=== PATIENT | male | born 1940 | race Caucasian/White ===

== ENCOUNTER 2021-10-08 09:57 | Emergency (ER) | payer OTHER, MEDICARE ==
[2021-10-08 11:31] LABS: CORONAVIRUS COVID-19 NAA POSITIVE (NEGATIVE)
--- NOTE | 2021-10-08 12:15 | EDM.PDOC ---
ED HPI GENERAL MEDICAL PROBLEM - General Chief Complaint: General Stated Complaint: POSSIBLE COVID Time Seen by Provider: 10/08/21 11:56 Source of Information: Reports: Patient, RN Notes Reviewed History Limitations: Reports: No Limitations - History of Present Illness INITIAL COMMENTS - FREE TEXT/NARRATIVE: 80-year-old gentleman presents emergency department today with complaint of fatigue body aches diarrhea he has not had any fevers was exposed to Covid about 2 weeks ago he has had symptoms for about a week and a half. - Related Data Allergies Allergy/AdvReac Type Severity Reaction Status Date / Time No Known Allergies Allergy Verified 10/08/21 10:36 Home Meds: Home Meds NK [No Known Home Meds] 10/08/21 [History] Past Medical History HEENT History: Reports: Cataract Musculoskeletal History: Reports: Fracture - Past Surgical History HEENT Surgical History: Reports: Cataract Surgery GI Surgical History: Reports: Appendectomy, Colonoscopy, Hernia, Inguinal Musculoskeletal Surgical History: Reports: Other (See Below) Other Musculoskeletal Surgeries/Procedures:: left wrist fx repair Social & Family History - Tobacco Use Tobacco Use Status *Q: Former Tobacco User Used Tobacco, but Quit: Yes Month/Year Tobacco Last Used: 0 - Caffeine Use Caffeine Use: Reports: Coffee - Recreational Drug Use Recreational Drug Use: No ED ROS GENERAL - Review of Systems Review Of Systems: See Below Constitutional: Reports: Weakness, Fatigue. Denies: Fever HEENT: Reports: No Symptoms Respiratory: Reports: Shortness of Breath Cardiovascular: Reports: Dyspnea on Exertion GI/Abdominal: Reports: Diarrhea ED EXAM, GENERAL - Physical Exam Exam: See Below Exam Limited By: No Limitations General Appearance: Alert, WD/WN, No Apparent Distress Respiratory/Chest: No Respiratory Distress, Lungs Clear, Normal Breath Sounds, No Accessory Muscle Use, Chest Non-Tender Cardiovascular: Regular Rate, Rhythm, No Murmur GI/Abdominal: Soft, Non-Tender Course - Vital Signs Last Recorded V/S: Last Vital Signs Temp 98 F 10/08/21 10:34 Pulse 95 10/08/21 10:34 Resp 18 10/08/21 10:34 BP 161/92 H 10/08/21 10:34 Pulse Ox 95 10/08/21 10:34 - Orders/Labs/Meds Orders: Active Orders 24 hr Category Date Time Status Isolation [COMM] Stat Oth 10/08/21 10:16 Ordered Labs: Laboratory Tests 10/08/21 Range/Units 10:40 Influenza Type A RNA Negative (NEGATIVE) RSV RNA (INAAT) Negative (NEGATIVE) Influenza Type B RNA Negative (NEGATIVE) SARS-CoV-2 RNA (AVEL) Positive H (NEGATIVE) Departure - Departure Time of Disposition: 12:14 Disposition: Home, Self-Care 01 Condition: Fair Clinical Impression: COVID-19 - Discharge Information Instructions: 10 Things You Can Do to Manage Your COVID-19 Symptoms at Home - [facility] (06/13/2021) Referrals: PCP,None [Primary Care Provider] - Additional Instructions: Use Tylenol Motrin as needed for pain control and symptomatic relief, please followup with your primary care provider in 7-10 days if not better, please call return to the emergency department with worsening of symptoms. Sepsis Event Note (ED) - Evaluation Sepsis Screening Result: No Definite Risk - Focused Exam Vital Signs: Vital Signs Temp Pulse Resp BP Pulse Ox 10/08/21 10:34 98 F 95 18 161/92 H 95 - My Orders Last 24 Hours: My Active Orders 10/08/21 10:16 Isolation [COMM] Stat - Assessment/Plan Last 24 Hours: My Active Orders 10/08/21 10:16 Isolation [COMM] Stat Plan: Assessment Acuity = acute Site and laterality = viral syndrome Etiology = COVID-19 Manifestations = dyspnea Location of injury = Home Lab values = COVID-19 positive, influenza A and B-, RSV negative Plan Because this gentleman is greater than 10 days out I do not think he is a candidate for the monoclonal antibody therapy continue with symptomatic care he is not hypoxic at this time follow-up primary care 7 to 10 days if not better return to the emergency department worsening of symptoms
== END 2021-10-08 12:33 | disposition home or self-care (01) ==
LOC: JP.ED 09:57
DX: U07.1 COVID-19 (principal); Z87.891 Personal history of nicotine dependence
CPT/HCPCS: 0241U; 99284

== ENCOUNTER 2021-10-12 11:28 | Emergency (ER) | payer OTHER, MEDICARE ==
--- NOTE | 2021-10-12 14:05 | EDM.PDOC ---
ED HPI GENERAL MEDICAL PROBLEM - General Chief Complaint: Respiratory Problem Stated Complaint: COVID POS. WEAKNESS, FEVER Time Seen by Provider: 10/12/21 13:50 Source of Information: Reports: Patient, Old Records History Limitations: Reports: No Limitations - History of Present Illness INITIAL COMMENTS - FREE TEXT/NARRATIVE: 80 [facility] [place] [facility]/08 and dx'd with Covid. At that time he was already over 10 d out from the onset of his sx's. [facility]. He is now weak as his main complaint. Onset: Gradual Duration: Week(s): (almost 2 weeks), Constant Location: Reports: Generalized Quality: Reports: Other (no pain) Severity: Moderate Improves with: Reports: Rest Worsens with: Reports: Movement (exertion) Context: Reports: Other (see HPI) Associated Symptoms: Reports: Weakness (generalized). 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) - Related Data Allergies Allergy/AdvReac Type Severity Reaction Status Date / Time No Known Allergies Allergy Verified 10/12/21 13:50 Home Meds: Home Meds NK [No Known Home Meds] 10/08/21 [History] Past Medical History HEENT History: Reports: Cataract Musculoskeletal History: Reports: Fracture - Infectious Disease History Infectious Disease History: Reports: Chicken Pox, Measles, Mumps, Shingles - Past Surgical History HEENT Surgical History: Reports: Cataract Surgery GI Surgical History: Reports: Appendectomy, Colonoscopy, Hernia, Inguinal Musculoskeletal Surgical History: Reports: Other (See Below) Other Musculoskeletal Surgeries/Procedures:: left wrist fx repair Social & Family History - Tobacco Use Tobacco Use Status *Q: Former Tobacco User Years of Tobacco use: 50 Packs/Tins Daily: 1 Used Tobacco, but Quit: Yes Month/Year Tobacco Last Used: 14 years ago - Caffeine Use Caffeine Use: Reports: Coffee ED ROS GENERAL - Review of Systems Review Of Systems: See Below Constitutional: Reports: Malaise, Weakness. Denies: Fever HEENT: Reports: No Symptoms Respiratory: Reports: No Symptoms Cardiovascular: Reports: No Symptoms GI/Abdominal: Reports: No Symptoms : Reports: No Symptoms Musculoskeletal: Reports: No Symptoms Skin: Reports: No Symptoms Neurological: Reports: No Symptoms Psychiatric: Reports: No Symptoms ED EXAM, GENERAL - Physical Exam Exam: See Below Exam Limited By: No Limitations General Appearance: Alert, WD/WN, No Apparent Distress Eye Exam: Bilateral Eye: Normal Inspection Ears: Normal External Exam, Normal Canal, Hearing Grossly Normal Ear Exam: Bilateral Ear: Auricle Normal, Canal Normal Nose: Normal Inspection, No Blood Throat/Mouth: Normal Inspection, Normal Lips, Normal Oropharynx, Normal Voice, No Airway Compromise Head: Atraumatic, Normocephalic Neck: Normal Inspection Respiratory/Chest: No Respiratory Distress, No Accessory Muscle Use, Crackles. No: Respiratory Distress, Accessory Muscle Use Cardiovascular: Regular Rate, Rhythm, No Edema GI/Abdominal: Soft, Non-Tender Extremities: Normal Inspection Neurological: Alert, Oriented, CN II-XII Intact, Normal Cognition, No Motor/Sensory Deficits Psychiatric: Normal Affect, Normal Mood Skin Exam: Warm, Dry, Intact, Normal Color, No Rash Course - Vital Signs Last Recorded V/S: Last Vital Signs Temp 37.7 C 10/12/21 13:59 Pulse 93 10/12/21 13:59 Resp 16 10/12/21 13:59 BP 149/99 H 10/12/21 13:59 Pulse Ox 92 L 10/12/21 13:59 - Orders/Labs/Meds Orders: Active Orders 24 hr Category Date Time Status UA W/MICROSCOPIC [URIN] Stat Lab 10/12/21 14:00 Ordered Labs: Laboratory Tests 10/12/21 10/12/21 Range/Units 14:10 14:10 WBC 8.0 (4.5-11.0) K/uL RBC 5.78 (4.30-5.90) M/uL Hgb 16.0 H (12.0-15.0) g/dL Hct 47.8 (40.0-54.0) % MCV 83 (80-98) fL MCH 28 (27-31) pg MCHC 34 (32-36) % Plt Count 101 L (150-400) K/uL Sodium 136 L (140-148) mmol/L Potassium 4.1 (3.6-5.2) mmol/L Chloride 102 (100-108) mmol/L Carbon Dioxide 21 (21-32) mmol/L Anion Gap 17.1 H (5.0-14.0) mmol/L BUN 15 (7-18) mg/dL Creatinine 1.0 (0.8-1.3) mg/dL Est Cr Clr Drug Dosing 54.17 mL/min Estimated GFR (MDRD) > 60 (>60) Glucose 99 (74-106) mg/dL Calcium 8.1 L (8.5-10.1) mg/dL Departure - Departure Time of Disposition: 15:18 Disposition: Home, Self-Care 01 Condition: Fair Clinical Impression: Weakness, COVID-19 - Discharge Information *PRESCRIPTION DRUG MONITORING PROGRAM REVIEWED*: No *COPY OF PRESCRIPTION DRUG MONITORING REPORT IN PATIENT CARMITA: No Instructions: Symptoms of COVID-19 - [facility] (01/20/2021) Referrals: PCP,None [Primary Care Provider] - Forms: ED Department Discharge Additional Instructions: Take acetaminophen as needed for pain or fever control. Drink enough fluids so that your urine is light yellow in color. Make sure you are up to date on your influenza and Covid vaccines. Recheck if worse. Sepsis Event Note (ED) - Evaluation Sepsis Screening Result: No Definite Risk - Focused Exam Vital Signs: Vital Signs Temp Pulse Resp BP Pulse Ox 10/12/21 13:59 37.7 C 93 16 149/99 H 92 L 10/12/21 13:43 37.7 C 93 16 149/99 H 92 L - My Orders Last 24 Hours: My Active Orders 10/12/21 14:00 UA W/MICROSCOPIC [URIN] Stat - Assessment/Plan Last 24 Hours: My Active Orders 10/12/21 14:00 UA W/MICROSCOPIC [URIN] Stat
== END 2021-10-12 15:33 | disposition home or self-care (01) ==
LOC: JP.ED 11:28
DX: U07.1 COVID-19 (principal); Z87.891 Personal history of nicotine dependence
CPT/HCPCS: 36415; 80048; 85027; 99284

== ENCOUNTER 2021-10-14 15:47 | Emergency (ER) | payer OTHER, MEDICARE ==
--- NOTE | 2021-10-14 16:35 | EDM.PDOC ---
ED HPI GENERAL MEDICAL PROBLEM - General Chief Complaint: Respiratory Problem Stated Complaint: COVID POS.-TROUBLE KEEPING OXYGEN LEVELS UP Time Seen by Provider: 10/14/21 16:20 Source of Information: Reports: Patient, Old Records History Limitations: Reports: No Limitations - History of Present Illness INITIAL COMMENTS - FREE TEXT/NARRATIVE: 80 yo male [place] patient presents for f/u on his Covid. Has PAGAN, mild diarrhea as his sx's. Was not vaccinated for Covid. He called the [place] and was told to go to the ER. No recent fever. Some fatigue. Sx onset about 14 d ago. Was seen here 2 d ago with oxygen sats of 92% at rest on RA. Onset: Gradual Onset Date: 09/30/21 Duration: Week(s): (2), Constant Location: Reports: Generalized Quality: Reports: Other (no pain) Severity: Mild Improves with: Reports: Rest Worsens with: Denies: Movement (exertion) Context: Reports: Other (See HPI) Associated Symptoms: Reports: Cough, Malaise, Other (diarrhea). 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) - Related Data Allergies Allergy/AdvReac Type Severity Reaction Status Date / Time No Known Allergies Allergy Verified 10/14/21 16:20 Home Meds: Home Meds Ibuprofen 400 mg PO ASDIRECTED 10/14/21 [History] Past Medical History HEENT History: Reports: Cataract Musculoskeletal History: Reports: Fracture - Infectious Disease History Infectious Disease History: Reports: Chicken Pox, Measles, Mumps, Novel Coronavirus, Shingles - Past Surgical History HEENT Surgical History: Reports: Cataract Surgery GI Surgical History: Reports: Appendectomy, Colonoscopy, Hernia, Inguinal Musculoskeletal Surgical History: Reports: Other (See Below) Other Musculoskeletal Surgeries/Procedures:: left wrist fx repair Social & Family History - Tobacco Use Tobacco Use Status *Q: Former Tobacco User Used Tobacco, but Quit: Yes Month/Year Tobacco Last Used: 2006 - Caffeine Use Caffeine Use: Reports: Coffee ED ROS GENERAL - Review of Systems Review Of Systems: See Below Constitutional: Reports: Malaise, Fatigue. Denies: Fever HEENT: Reports: No Symptoms Respiratory: Reports: Shortness of Breath, Cough. Denies: Wheezing, Pleuritic Chest Pain, Sputum, Hemoptysis Cardiovascular: Reports: Dyspnea on Exertion GI/Abdominal: Reports: Diarrhea (mild). Denies: Nausea : Reports: No Symptoms Musculoskeletal: Reports: No Symptoms Skin: Reports: No Symptoms Neurological: Reports: No Symptoms ED EXAM, GENERAL - Physical Exam Exam: See Below Exam Limited By: No Limitations General Appearance: Alert, WD/WN, No Apparent Distress Eye Exam: Bilateral Eye: Normal Inspection Ears: Normal External Exam, Normal Canal, Hearing Grossly Normal Ear Exam: Bilateral Ear: Auricle Normal, Canal Normal, TM normal Nose: Normal Inspection, No Blood Throat/Mouth: Normal Inspection, Normal Lips, Normal Oropharynx, Normal Voice, No Airway Compromise Head: Atraumatic, Normocephalic Neck: Normal Inspection Respiratory/Chest: No Respiratory Distress, No Accessory Muscle Use, Crackles Cardiovascular: Regular Rate, Rhythm, No Edema GI/Abdominal: Soft, Non-Tender Extremities: Normal Inspection Neurological: Alert, Oriented, CN II-XII Intact, Normal Cognition, No Motor/Sensory Deficits Psychiatric: Normal Affect, Normal Mood Skin Exam: Warm, Dry, Intact, Normal Color, No Rash Course - Vital Signs Last Recorded V/S: Last Vital Signs Temp 36.8 C 10/14/21 16:26 Pulse 86 10/14/21 17:36 Resp 16 10/14/21 16:26 BP 125/83 10/14/21 17:36 Pulse Ox 89 L 10/14/21 17:36 - Orders/Labs/Meds Orders: Active Orders 24 hr Category Date Time Status BASIC METABOLIC PANEL,BMP [CHEM] Stat Lab 10/14/21 18:03 Received Labs: Laboratory Tests 10/14/21 Range/Units 18:03 WBC 8.3 (4.5-11.0) K/uL RBC 5.94 H (4.30-5.90) M/uL Hgb 16.4 H (12.0-15.0) g/dL Hct 48.8 (40.0-54.0) % MCV 82 (80-98) fL MCH 28 (27-31) pg MCHC 34 (32-36) % Plt Count 144 L (150-400) K/uL Departure - Departure Time of Disposition: 18:16 Disposition: Home, Self-Care 01 Condition: Fair Clinical Impression: COVID-19 - Discharge Information *PRESCRIPTION DRUG MONITORING PROGRAM REVIEWED*: Not Applicable *COPY OF PRESCRIPTION DRUG MONITORING REPORT IN PATIENT CARMITA: Not Applicable Referrals: PCP,None [Primary Care Provider] - Forms: ED Department Discharge Additional Instructions: Acetaminophen for pain or fever. Drink ample fluids. Return for fever. Sepsis Event Note (ED) - Evaluation Sepsis Screening Result: No Definite Risk - Focused Exam Vital Signs: Vital Signs Temp Pulse Resp BP Pulse Ox 10/14/21 17:36 86 125/83 89 L 10/14/21 16:26 36.8 C 97 16 147/89 H 91 L 10/14/21 16:11 36.8 C 97 16 147/89 H 90 L - My Orders Last 24 Hours: My Active Orders 10/14/21 18:03 BASIC METABOLIC PANEL,BMP [CHEM] Stat - Assessment/Plan Last 24 Hours: My Active Orders 10/14/21 18:03 BASIC METABOLIC PANEL,BMP [CHEM] Stat
== END 2021-10-14 18:36 | disposition home or self-care (01) ==
LOC: JP.ED 15:47
DX: U07.1 COVID-19 (principal); Z87.891 Personal history of nicotine dependence
CPT/HCPCS: 36415; 80048; 85027; 99284

== ENCOUNTER 2021-10-31 11:10 | Emergency (ER) | payer OTHER, MEDICARE ==
--- NOTE | 2021-10-31 13:07 | CR ---
CHEST: Portable 10/31/2021 at 12:00 PM CLINICAL HISTORY:Dyspnea COMPARISON:None FINDINGS: Patient has diffuse bilateral pneumonic infiltrates and groundglass opacities. Heart and pulmonary vascularity are normal. There are no effusions. Impression: Diffuse bilateral infiltrates consistent with pneumonitis
--- NOTE | 2021-10-31 13:43 | EDM.PDOC ---
ED HPI GENERAL MEDICAL PROBLEM - General Chief Complaint: Respiratory Problem Stated Complaint: MED[facility] Time Seen by Provider: 10/31/21 11:39 Source of Information: Reports: Patient, EMS History Limitations: Reports: No Limitations - History of Present Illness INITIAL COMMENTS - FREE TEXT/NARRATIVE: Frantz is an 80-year-old male presenting to the ED via [facility] for evaluation of increasing shortness of breath and hypoxia. The patient was diagnosed a month ago with COVID-19 and normally doctors with the [facility] in [place]. He was discharged home with an oxygen concentrator after being diagnosed with COVID-19 and had been doing well until several days ago. He started to feel more short of breath and started checking his oximetry and found that his SPO2 was dropping below 88% with activity. Today he became more startled because his oxygen levels was actually dropping below 80% and he was not able to get his O2 levels above 85% prompting him to call the [facility] which recommended that he come to the closest ER for evaluation. It appears that his oxygen concentrator may be broken. Upon arrival to the ED, the patient was placed on 4 L of oxygen satting 90% and feeling much better. He denies any new symptoms other than the increasing shortness of breath and hypoxia. Again he is more than a month out from having COVID-19. With appropriate oxygenation, the patient feels well. - Related Data Allergies Allergy/AdvReac Type Severity Reaction Status Date / Time No Known Allergies Allergy Verified 10/31/21 11:19 Home Meds: Home Meds Ibuprofen 400 mg PO ASDIRECTED 10/14/21 [History] Past Medical History HEENT History: Reports: Cataract Respiratory History: Reports: Other (See Below) Other Respiratory History: covid 10/01/2021 Musculoskeletal History: Reports: Fracture - Infectious Disease History Infectious Disease History: Reports: Chicken Pox, Measles, Mumps, Novel Coronavirus, Shingles - Past Surgical History HEENT Surgical History: Reports: Cataract Surgery GI Surgical History: Reports: Appendectomy, Colonoscopy, Hernia, Inguinal Musculoskeletal Surgical History: Reports: Other (See Below) Other Musculoskeletal Surgeries/Procedures:: left wrist fx repair Social & Family History - Tobacco Use Tobacco Use Status *Q: Former Tobacco User Used Tobacco, but Quit: Yes Month/Year Tobacco Last Used: 14 years ago Second Hand Smoke Exposure: No - Caffeine Use Caffeine Use: Reports: None - Recreational Drug Use Recreational Drug Use: No ED ROS GENERAL - Review of Systems Review Of Systems: See Below Constitutional: Reports: No Symptoms HEENT: Reports: No Symptoms Respiratory: Reports: Shortness of Breath, Cough. Denies: Sputum Cardiovascular: Reports: No Symptoms Endocrine: Reports: Fatigue GI/Abdominal: Reports: No Symptoms : Reports: No Symptoms Musculoskeletal: Reports: No Symptoms Skin: Reports: No Symptoms Neurological: Reports: No Symptoms Psychiatric: Reports: No Symptoms Hematologic/Lymphatic: Reports: No Symptoms Immunologic: Reports: No Symptoms ED EXAM, GENERAL - Physical Exam Exam: See Below Exam Limited By: No Limitations General Appearance: Alert, No Apparent Distress Eye Exam: Bilateral Eye: EOMI, PERRL Throat/Mouth: Normal Inspection, Normal Oropharynx, Normal Voice, No Airway Compromise Head: Atraumatic, Normocephalic Neck: Normal Inspection, Supple. No: Carotid Bruit Respiratory/Chest: No Respiratory Distress, No Accessory Muscle Use, Crackles (Bibasilar) Cardiovascular: Normal Peripheral Pulses, Regular Rate, Rhythm, No Murmur Peripheral Pulses: 2+: Radial (L), Radial (R) GI/Abdominal: Normal Bowel Sounds, Soft, Non-Tender Extremities: Normal Inspection Neurological: Alert, Oriented, Normal Cognition, No Motor/Sensory Deficits Psychiatric: Normal Affect, Normal Mood Skin Exam: Warm, Dry. No: Cyanosis Course - Vital Signs Last Recorded V/S: Last Vital Signs Temp 35.9 C L 10/31/21 11:11 Pulse 102 H 10/31/21 14:01 Resp 16 10/31/21 13:09 BP 127/82 10/31/21 14:01 Pulse Ox 93 L 10/31/21 13:09 - Orders/Labs/Meds Orders: Active Orders 24 hr Category Date Time Status Iopamidol [Isovue-370 (76%)] Med 10/31/21 14:00 Active 75 ml IV . DIRECTED Sodium Chloride 0.9% [Saline Flush] Med 10/31/21 13:52 Active 10 ml FLUSH ONETIME PRN Medication Orders Iopamidol (Iopamidol 755 Mg/Ml 100 Ml Bottle) 75 ml IV . DIRECTED [facility] Last Admin: 10/31/21 14:18 Dose: 75 ml Documented by: JARON Sodium Chloride (Sodium Chloride 0.9% 10 Ml Syringe) 10 ml FLUSH ONETIME PRN PRN Reason: PER RADIOLOGY PROTOCOL Last Admin: 10/31/21 14:18 Dose: 10 ml Documented by: JARON Labs: Laboratory Tests 10/31/21 10/31/21 10/31/21 Range/Units 11:55 11:55 11:55 WBC 12.2 H (4.5-11.0) K/uL RBC 5.32 (4.30-5.90) M/uL Hgb 14.9 (12.0-15.0) g/dL Hct 43.9 (40.0-54.0) % MCV 83 (80-98) fL MCH 28 (27-31) pg MCHC 34 (32-36) % Plt Count 482 H (150-400) K/uL Neut % (Auto) 61.5 (36-66) % Lymph % (Auto) 23.3 L (24-44) % York % (Auto) 12.4 H (2-6) % Eos % (Auto) 1.8 L (2-4) % Baso % (Auto) 1.0 (0-1) % D-Dimer, Quantitative 6439.93 H (0.0-500.0) ng/mL Sodium 133 L (140-148) mmol/L Potassium 4.5 (3.6-5.2) mmol/L Chloride 100 (100-108) mmol/L Carbon Dioxide 27 (21-32) mmol/L Anion Gap 10.5 (5.0-14.0) mmol/L BUN 11 (7-18) mg/dL Creatinine 0.9 (0.8-1.3) mg/dL Est Cr Clr Drug Dosing 59.16 mL/min Estimated GFR (MDRD) > 60 (>60) Glucose 99 (74-106) mg/dL Lactic Acid (0.4-2.0) mmol/L Calcium 8.5 (8.5-10.1) mg/dL Total Bilirubin 0.6 (0.2-1.0) mg/dL AST 25 (15-37) U/L ALT 42 (12-78) U/L Alkaline Phosphatase 99 (46-116) U/L Lactate Dehydrogenase 289 H (85-227) U/L C-Reactive Protein 1.69 H (0.0-0.3) mg/dL Total Protein 6.7 (6.4-8.2) g/dL Albumin 2.8 L (3.4-5.0) g/dL Globulin 3.9 H (2.3-3.5) g/dL Albumin/Globulin Ratio 0.7 L (1.2-2.2) 10/31/21 Range/Units 11:55 WBC (4.5-11.0) K/uL RBC (4.30-5.90) M/uL Hgb (12.0-15.0) g/dL Hct (40.0-54.0) % MCV (80-98) fL MCH (27-31) pg MCHC (32-36) % Plt Count (150-400) K/uL Neut % (Auto) (36-66) % Lymph % (Auto) (24-44) % York % (Auto) (2-6) % Eos % (Auto) (2-4) % Baso % (Auto) (0-1) % D-Dimer, Quantitative (0.0-500.0) ng/mL Sodium (140-148) mmol/L Potassium (3.6-5.2) mmol/L Chloride (100-108) mmol/L Carbon Dioxide (21-32) mmol/L Anion Gap (5.0-14.0) mmol/L BUN (7-18) mg/dL Creatinine (0.8-1.3) mg/dL Est Cr Clr Drug Dosing mL/min Estimated GFR (MDRD) (>60) Glucose (74-106) mg/dL Lactic Acid 1.4 (0.4-2.0) mmol/L Calcium (8.5-10.1) mg/dL Total Bilirubin (0.2-1.0) mg/dL AST (15-37) U/L ALT (12-78) U/L Alkaline Phosphatase (46-116) U/L Lactate Dehydrogenase (85-227) U/L C-Reactive Protein (0.0-0.3) mg/dL Total Protein (6.4-8.2) g/dL Albumin (3.4-5.0) g/dL Globulin (2.3-3.5) g/dL Albumin/Globulin Ratio (1.2-2.2) Meds: Medications Generic Name Dose Route Start Last Admin Trade Name Dieudonne PRN Reason Stop Dose Admin Iopamidol 75 ml 10/31/21 14:00 10/31/21 14:18 Iopamidol 755 Mg/Ml 100 Ml Bottle IV 75 ml . DIRECTED MIGUELINA Administration Sodium Chloride 10 ml 10/31/21 13:52 10/31/21 14:18 Sodium Chloride 0.9% 10 Ml Syringe FLUSH 10 ml ONETIME PRN Administration PER RADIOLOGY PROTOCOL Discontinued Medications Generic Name Dose Route Start Last Admin Trade Name Dieudonne PRN Reason Stop Dose Admin Sodium Chloride 87 mls @ 3 mls/sec 10/31/21 13:52 10/31/21 14:18 Normal Saline IV 10/31/21 13:53 3 mls/sec ONETIME ONE Administration - Radiology Interpretation Free Text/Narrative:: I reviewed the images of the 1 view chest x-ray as well as the report. There is appearance of pneumonitis in both bases with groundglass appearance consistent with Covid pneumonitis. I reviewed the images of the CT angiogram of the chest as well as the report. There was no evidence for acute pulmonary emboli, however, there is significant bibasilar groundglass opacities consistent with Covid pneumonitis. - Re-Assessments/Exams Free Text/Narrative Re-Assessment/Exam: 10/31/21 13:44 reviewed the patient's labs showing a leukocytosis at 12.2, hemoglobin of 14.9 and a platelet count of 482,000. The comprehensive metabolic panel is significant for sodium 133, potassium 4.5, chloride of 100, bicarbonate of 27, BUN of 11 with a creatinine of 0.9 and a glucose of 99. I did run Covid markers showing a markedly elevated D-dimer at 6439, LDH of 289, and C-reactive protein at 1.69. The venous lactic acid is only 1.4. These are higher than I would expect being 1 month out from having COVID-19 so we will proceed with a CT angiogram of the chest given the patient's hypoxia. The patient did notify me that his daughter troubleshoot it his home concentrator and found that the cap to the bubble her on the concentrator was unscrewed causing the air to bypass the hose which is likely the reason that his oxygen delivery was diminished. The patient is in agreement with proceeding with a CT angiogram of the chest despite this finding which I think is a good idea. If the angiogram of the chest is unremarkable, the patient could likely return back home. 10/31/21 14:[address] of the chest did not show any evidence for pulmonary emboli but rather significant groundglass opacities consistent with Covid pneumonitis. 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 The patient's daughter was able to troubleshoot and correct the oxygen concentrator at home and at this time I believe he is suitable for discharge home. We will have to figure out the logistics of how to get him home with oxygen until he can get back on his concentrator. Departure - Departure Time of Disposition: 14:56 Disposition: Home, Self-Care 01 Clinical Impression: Pneumonia due to COVID-19 virus, Hypoxia, COVID-19 long hauler manifesting chronic dyspnea - Discharge Information Instructions: 10 Things You Can Do to Manage Your COVID-19 Symptoms at Home - [facility] (06/13/2021), Shortness of Breath, Adult, [id number] Referrals: PCP,None [Primary Care Provider] - Forms: ED Department Discharge Care Plan Goals: Your work-up today shows that you have persistent inflammation of your lung due to the recent COVID-19 infection which is likely the cause for your ongoing hypoxia (low oxygen rate). At this time, there is nothing really to do other than oxygen support until this resolves. There was no evidence in your work-up today for any acute blood clots. Follow-up with the [facility] as needed. Sepsis Event Note (ED) - Evaluation Sepsis Screening Result: No Definite Risk - Focused Exam Vital Signs: Vital Signs Temp Pulse Resp BP Pulse Ox 10/31/21 14:01 102 H 127/82 10/31/21 13:09 94 16 134/86 93 L 10/31/21 11:11 35.9 C L 104 H 22 H 155/93 H 94 L - Problem List & Annotations (1) COVID-19 long hauler manifesting chronic dyspnea SNOMED Code(s): 2274825792 Code(s): R06.09 - OTHER FORMS OF DYSPNEA; U09.9 - POST COVID-19 CONDITION, UNSPECIFIED Status: Acute Priority: High Current Visit: Yes (2) Hypoxia SNOMED Code(s): 245028404 Code(s): R09.02 - HYPOXEMIA Status: Acute Priority: High Current Visit: Yes (3) Pneumonia due to COVID-19 virus SNOMED Code(s): 819695061852841633 Code(s): U07.1 - COVID-19; J12.82 - PNEUMONIA DUE TO CORONAVIRUS DISEASE 2019 Status: Acute Priority: High Current Visit: Yes - Problem List Review Problem List Initiated/Reviewed/Updated: Yes - My Orders Last 24 Hours: My Active Orders 10/31/21 13:52 Sodium Chloride 0.9% [Saline Flush] 10 ml FLUSH ONETIME PRN 10/31/21 14:00 Iopamidol [Isovue-370 (76%)] 75 ml IV . DIRECTED - Assessment/Plan Last 24 Hours: My Active Orders 10/31/21 13:52 Sodium Chloride 0.9% [Saline Flush] 10 ml FLUSH ONETIME PRN 10/31/21 14:00 Iopamidol [Isovue-370 (76%)] 75 ml IV . DIRECTED
[2021-10-31] MEDS ORDERED: Sodium Chloride 0.9% 10 ML Syringe FLUSH PRN (13:52)
[2021-10-31] MEDS ORDERED: Iopamidol 755 Mg/ML 100 ML Bottle IV SCH (14:00)
[2021-10-31] MEDS: Sodium Chloride 0.9% 87 ML IV ONE (14:18)
--- NOTE | 2021-10-31 14:47 | CT ---
Ang Chest CLINICAL HISTORY: Hypoxia, dyspnea, history of covid TECHNIQUE: Thin section axial contiguous tomographic sections were taken through the chest after bolus IV iodinated contrast administration. Coronal and sagittal images were reconstructed. Auto dosage reduction and iterative reconstruction techniques employed. 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 There are scattered infiltrates bilaterally in both the upper and lower lobes. There are also scattered diffuse groundglass opacities. There is an area of consolidation in the left lower lobe. There are multiple lymph nodes throughout the mediastinum in the peritracheal Carinal and aortopulmonic region. These are likely reactive lymph nodes the largest is in the right low paratracheal region measuring 1.6 x 1.2 cm. Aortic arch is free of aneurysm or dissection. No filling defects identified in the pulmonary arteries. IMPRESSION: No evidence to suggest pulmonary embolus Diffuse bilateral pulmonary infiltrates with areas of groundglass opacity and a small area of consolidation. This is consistent with pneumonitis. Underlying COPD
== END 2021-10-31 16:10 | disposition home or self-care (01) ==
LOC: JP.ED 11:10
DX: U07.1 COVID-19 (principal); J12.82 Pneumonia due to coronavirus disease 2019; R09.02 Hypoxemia; Z87.891 Personal history of nicotine dependence
CPT/HCPCS: 36415; 71045; 71275; 80053; 83605; 83615; 85025; 85379; 86140; 99285; Q9967